=== PATIENT | female | born 1990 | race Caucasian/White ===

== ENCOUNTER 2016-08-03 18:57 | Emergency (ER) | payer MEDICAID, OTHER ==
--- NOTE | 2016-08-03 19:35 | UC ---
Respiratory Complaint HPI - HPI Summary HPI Summary: cough x 3 days + chest congestion , nasal congestion , no fever, no chills - History of Current Complaint Chief Complaint: UCRespiratory Stated Complaint: COUGH Time Seen by Provider: 08/03/16 19:25 Hx Obtained From: Patient Hx Last Menstrual Period: doesn't get - has mirena ?: No Onset/Duration: Gradual Onset, Lasting Days - 3, Still Present Timing: Constant Severity Initially: Moderate Severity Currently: Moderate Character: Cough: Productive Aggravating Factors: Exertion, Deep Breaths Alleviating Factors: Nothing Associated Signs And Symptoms: Positive: Wheezing, URI, Nasal Congestion. Negative: Dyspnea, Fever, Chills, Dizziness - Allergies/Home Medications Allergies/Adverse Reactions: Allergies Allergy/AdvReac Type Severity Reaction Status Date / Time Azithromycin [From Zithromax] Allergy Mild Rash and Verified 08/03/16 19:20 Vomiting PMH/Surg Hx/FS Hx/Imm Hx Endocrine History Of: Denies: Diabetes, Thyroid Disease, Hyperthyroidism, Hypothyroidism, Dyslipidemia Cardiovascular History Of: Denies: Cardiac Disorders, Hypertension, Pacemaker/ICD, Myocardial Infarction , Congestive Heart Failure, Atrial Fibrillation, Deep Vein Thrombosis, Bleeding Disorders Respiratory History Of: Denies: COPD, Asthma, Bronchitis, Pneumonia, Pulmonary Embolism GI/ History Of: Denies: Gastroesophageal Reflux, Ulcer, Gastrointestinal Bleed, Gall Bladder Disease, Kidney Stones, Diverticulitis, Renal Disease, Urosepsis Neurological History Of: Denies: TIA, CVA, Dementia, Seizures, Migraine Psychological History Of: Denies: Anxiety, Depression, Bipolar Disorder, Schizophrenia, Post Traumatic Stress Disorder Cancer History Of: Denies: Lung Cancer, Colorectal Cancer, Breast Cancer, Prostate Cancer, Cervical Cancer Other History Of: Negative For: HIV, Hepatitis B, Hepatitis C, Anticoagulant Therapy - Surgical History Surgical History: Yes Surgery Procedure, Year, and Place: left eye surgery - Family History Known Family History: Positive: Hypertension Negative: Cardiac Disease, Diabetes - Social History Alcohol Use: Rare Substance Use Type: None Smoking Status (MU): Heavy Every Day Tobacco Smoker Type: Cigarettes Amount Used/How Often: 1/2 ppd Length of Time of Smoking/Using Tobacco: APPROX 4-5 YRS Household Exposure Type: Cigarettes - Immunization History Most Recent Influenza Vaccination: none Most Recent Tetanus Shot: 02/09/14 Most Recent Pneumonia Vaccination: never Review of Systems Constitutional: Negative Skin: Negative Eyes: Negative ENT: Nasal Discharge Respiratory: Cough Cardiovascular: Negative Gastrointestinal: Negative All Other Systems Reviewed And Are Negative: Yes Physical Exam Triage Information Reviewed: Yes Appearance: Well-Appearing, No Pain Distress, Well-Nourished Vital Signs: Initial Vital Signs Temp 97.8 F 08/03/16 19:21 Pulse 84 08/03/16 19:21 Resp 16 08/03/16 19:21 BP 114/72 08/03/16 19:21 Pulse Ox 100 08/03/16 19:21 Vital Signs Reviewed: Yes Eye Exam: Normal Eyes: Positive: Conjunctiva Clear ENT: Positive: Normal ENT inspection, Hearing grossly normal, Pharynx normal, Nasal congestion, Nasal drainage. Negative: Pharyngeal erythema Neck exam: Normal Neck: Positive: Supple, Nontender, No Lymphadenopathy Respiratory: Positive: Chest non-tender, Lungs clear, Normal breath sounds Cardiovascular: Positive: RRR, No Murmur, Pulses Normal Skin Exam: Normal UC Diagnostic Evaluation - Laboratory O2 Sat by Pulse Oximetry: 100 Respiratory Course/Dx - Differential Dx/Diagnosis Provider Diagnoses: uri Discharge - Discharge Plan Condition: Stable Disposition: HOME Prescriptions: Albuterol HFA INHALER* [Ventolin HFA Inhaler*] 1 - 2 puff INH Q4H PRN #1 mdi PRN Reason: Wheezing Patient Education Materials: Upper Respiratory Infection (ED) Referrals: Sylvia Stanton MD [Primary Care Provider] - If Needed
[2016-08-03] MEDS ORDERED: Albuterol HFA INHALER* 8 gm MDI INH ONE (19:36)
[2016-08-03 19:39] VITALS: BP 114/72
== END 2016-08-03 19:44 | disposition home or self-care (01) ==
LOC: UCCORT 18:57
DX: J06.9 Acute upper respiratory infection, unspecified (principal); Z88.1 Allergy status to other antibiotic agents; F17.210 Nicotine dependence, cigarettes, uncomplicated
CPT/HCPCS: 99211; A9270-GY; G0463

== ENCOUNTER 2016-08-26 09:44 | Emergency (ER) | payer MEDICAID ==
[2016-08-26 12:35] VITALS: BP 114/70
--- NOTE | 2016-08-26 13:43 | UC ---
Complaint Female HPI - HPI Summary HPI Summary: Patient arrives with CC of urgency, burning, frequency and right flank pain x 3 days. She states she has had the Mirena for about 1 year and consistently gets UTI's. Denies hx of kidney stones. She denies blood in the urine - History Of Current Complaint Chief Complaint: UCGU Stated Complaint: URINARY COMPLAINT Time Seen by Provider: 08/26/16 13:00 Hx Obtained From: Patient Hx Last Menstrual Period: IUD ?: No Onset/Duration: Sudden Onset Timing: Constant Severity Initially: Moderate Severity Currently: Moderate Pain Intensity: 5 Pain Scale Used: 0-10 Numeric Character: Sharp, Burning Associated Signs And Symptoms: Positive: Back Pain - Risk Factors Ectopic Risk Factor: Negative Ovarian Torsion Risk Factor: Reproductive Age - Allergies/Home Medications Allergies/Adverse Reactions: Allergies Allergy/AdvReac Type Severity Reaction Status Date / Time Azithromycin [From Zithromax] Allergy Mild Rash and Verified 08/26/16 12:31 Vomiting PMH/Surg Hx/FS Hx/Imm Hx Previously Healthy: Yes Endocrine History Of: Denies: Diabetes, Thyroid Disease, Hyperthyroidism, Hypothyroidism, Dyslipidemia Cardiovascular History Of: Denies: Cardiac Disorders, Hypertension, Pacemaker/ICD, Myocardial Infarction , Congestive Heart Failure, Atrial Fibrillation, Deep Vein Thrombosis, Bleeding Disorders Respiratory History Of: Reports: Asthma Denies: COPD, Bronchitis, Pneumonia, Pulmonary Embolism GI/ History Of: Denies: Gastroesophageal Reflux, Ulcer, Gastrointestinal Bleed, Gall Bladder Disease, Kidney Stones, Diverticulitis, Renal Disease, Urosepsis Neurological History Of: Denies: TIA, CVA, Dementia, Seizures, Migraine Psychological History Of: Denies: Anxiety, Depression, Bipolar Disorder, Schizophrenia, Post Traumatic Stress Disorder Cancer History Of: Denies: Lung Cancer, Colorectal Cancer, Breast Cancer, Prostate Cancer, Cervical Cancer Other History Of: Negative For: HIV, Hepatitis B, Hepatitis C, Anticoagulant Therapy - Surgical History Surgical History: None Surgery Procedure, Year, and Place: left eye surgery - Family History Known Family History: Positive: Hypertension Negative: Cardiac Disease, Diabetes - Social History Occupation: Employed Full-time Lives: With Family Alcohol Use: Rare Substance Use Type: None Smoking Status (MU): Heavy Every Day Tobacco Smoker Type: Cigarettes Amount Used/How Often: 1/2 ppd Length of Time of Smoking/Using Tobacco: APPROX 4-5 YRS Household Exposure Type: Cigarettes - Immunization History Most Recent Influenza Vaccination: None Most Recent Tetanus Shot: 02/09/14 Most Recent Pneumonia Vaccination: never Review of Systems Constitutional: Negative Eyes: Negative Respiratory: Negative Cardiovascular: Negative Genitourinary: Dysuria, Frequency, Urgency Motor: Negative Neurovascular: Negative Neurological: Negative Psychological: Negative All Other Systems Reviewed And Are Negative: Yes Physical Exam Triage Information Reviewed: Yes Appearance: Well-Appearing, Well-Nourished Vital Signs: Initial Vital Signs Temp 97.6 F 08/26/16 12:32 Pulse 79 08/26/16 12:32 Resp 18 08/26/16 12:32 BP 114/70 08/26/16 12:32 Pulse Ox 99 08/26/16 12:32 Vital Signs Reviewed: Yes Eye Exam: Normal Eyes: Positive: Conjunctiva Clear Neck exam: Normal Neck: Positive: Supple Respiratory Exam: Normal Respiratory: Positive: Chest non-tender Abdominal Exam: Normal Abdomen Description: Positive: Nontender Musculoskeletal Exam: Normal Neurological Exam: Normal Neurological: Positive: Alert Psychological: Positive: Normal Response To Family, Age Appropriate Behavior Skin Exam: Normal Complaint Female Dx - Course Course Of Treatment: PATIENT WAS TREATED FOR UTI DESPITE UA NEGATIVE BASED ON SYMPTOMS OF URGENCY, FREQUENCY, BURNING AND DARK URINE. DENIES STD HISTORY OR POSSIBILITY. DENIES CHANCE OF . PATIENT IS ON MIRENA. - Differential Dx/Diagnosis Differential Diagnosis/HQI/PQRI: Cervicitis, Ureteral Stone, Urinary Tract Infection Provider Diagnoses: UTI Discharge - Discharge Plan Condition: Stable Disposition: HOME Prescriptions: Phenazopyridine TAB* [Pyridium 100 mg TAB*] 100 mg PO TID PRN #10 tab MDD 3 PRN Reason: Pain Sulfamethox/Trimethoprim DS* [Bactrim DS 800/160 TAB*] 1 tab PO BID #6 tab MDD 2 Patient Education Materials: Urinary Tract Infection in Women (ED) Referrals: Sylvia Stanton MD [Primary Care Provider] - Additional Instructions: Dx. Urinary Tract Infection Drink plenty of fluids. Supplement with cranberry or toscano juice. You may also take an over the counter cranberry supplement. If you have any questions about this, you may ask your pharmacist. If your symptoms have not improved in 1-2 days, please return to , the emergency room, or call your PCP. Please take any medications prescribed to you as directed. Pyridium: This medication is used to treat pain, burning, increased urination, and increased urge to urinate. These symptoms are usually caused by infection, injury, surgery, catheter, or other conditions that irritate the lower urinary tract. Pyridium will treat the symptoms of a urinary tract infection, but this medication does not treat the actual infection. Take the antibiotic that your doctor prescribes to treat your infection. Pyridium will most likely darken the color of your urine to an orange or red color. This is a normal effect and is not cause for alarm unless you have other symptoms such as pale or yellowed skin, fever, stomach pain, nausea, and vomiting. Darkened urine may also cause stains to your underwear, which may or may not be removed by laundering. It can also permanently stain soft contact lenses, and you should not wear them while taking this medicine.
== END 2016-08-26 13:33 | disposition home or self-care (01) ==
LOC: UCCORT 09:44
DX: N39.0 Urinary tract infection, site not specified (principal); Z87.440 Personal history of urinary (tract) infections; J45.909 Unspecified asthma, uncomplicated; Z88.1 Allergy status to other antibiotic agents; F17.210 Nicotine dependence, cigarettes, uncomplicated; Z32.02 Encounter for pregnancy test, result negative
CPT/HCPCS: 81003; 84702; 99212; G0463

== ENCOUNTER 2017-03-04 20:43 | Emergency (ER) | payer OTHER ==
[2017-03-04 20:58] VITALS: BP 116/70
--- NOTE | 2017-03-04 22:33 | UC ---
FLU HPI - HPI Summary HPI Summary: 27 y/o female with PMH - History of Current Complaint Hx Obtained From: Patient Hx Last Menstrual Period: unknown, mirena ?: No Onset/Duration: Sudden Onset, Lasting Days Severity Currently: Mild Severity Initially: Moderate <Jeni Rubalcava - Last Filed: 03/04/17 22:48> <Yazmin Stanton - Last Filed: 03/05/17 07:37> - History of Current Complaint Chief Complaint: UCRespiratory Stated Complaint: SINUS Time Seen by Provider: 03/04/17 22:32 - Allergy/Home Medications Allergies/Adverse Reactions: Allergies Allergy/AdvReac Type Severity Reaction Status Date / Time Azithromycin [From Zithromax] Allergy Mild Rash and Verified 03/04/17 20:58 Vomiting PMH/Surg Hx/FS Hx/Imm Hx Previously Healthy: Yes Other History Of: Negative For: HIV, Hepatitis B, Hepatitis C, Anticoagulant Therapy - Surgical History Surgical History: Yes Surgery Procedure, Year, and Place: left eye surgery - Family History Known Family History: Positive: Hypertension Negative: Cardiac Disease, Diabetes - Social History Alcohol Use: None Substance Use Type: None Smoking Status (MU): Heavy Every Day Tobacco Smoker Type: Cigarettes Amount Used/How Often: 1/2 ppd Length of Time of Smoking/Using Tobacco: APPROX 4-5 YRS Household Exposure Type: Cigarettes - Immunization History Most Recent Influenza Vaccination: None Most Recent Tetanus Shot: 02/09/14 Most Recent Pneumonia Vaccination: never <Jeni Rubalcava - Last Filed: 03/04/17 22:48> Review of Systems Constitutional: Fever - tactile, Chills, Fatigue ENT: Ear Ache - fullness, Sinus Congestion, Sinus Pain/Tenderness - frontal, max Respiratory: Cough Musculoskeletal: Negative Neurological: Negative Psychological: Negative Is Patient Immunocompromised?: No All Other Systems Reviewed And Are Negative: Yes <Jeni Rubalcava - Last Filed: 03/04/17 22:48> Physical Exam Triage Information Reviewed: Yes Appearance: Well-Appearing, No Pain Distress, Well-Nourished Vital Signs: Initial Vital Signs Temp 98 F 03/04/17 20:54 Pulse 76 03/04/17 20:54 Resp 16 03/04/17 20:54 BP 116/70 03/04/17 20:54 Pulse Ox 100 03/04/17 20:54 Vital Signs Reviewed: Yes Eyes: Positive: Conjunctiva Clear ENT: Positive: Pharyngeal erythema - minimal, no exudates + tenderness with light palpation/ percussino over frontal, max sinuses b/l, Other: - unable to fully visualize TM due to cerumen, no impaction Neck: Positive: Supple, Nontender, Enlarged Nodes @ - minimal submand. <1cm Respiratory: Positive: Chest non-tender, Lungs clear, Normal breath sounds, No respiratory distress, Respiratory distress. Negative: Rhonchi, Stridor, Wheezing, Expiration Neurological: Positive: Other: - normal gait Psychological Exam: Normal Skin Exam: Normal <Jeni Rubalcava - Last Filed: 03/04/17 22:48> Vital Signs: Initial Vital Signs Temp 98 F 03/04/17 20:54 Pulse 76 03/04/17 20:54 Resp 16 03/04/17 20:54 BP 116/70 03/04/17 20:54 Pulse Ox 100 03/04/17 20:54 <Yazmin Stanton - Last Filed: 03/05/17 07:37> Flu Course/Dx - Course Course Of Treatment: acute sinusitis, abx given, patient educated to go to ER with worsening symptoms, neck pain. - Differential Dx/Diagnosis Differential Diagnosis/HQI/PQRI: Bronchitis Provider Diagnoses: acute sinusitis <Jeni Rubalcava - Last Filed: 03/04/17 22:48> Discharge <Jeni Rubalcava - Last Filed: 03/04/17 22:48> <Yazmin Stanton - Last Filed: 03/05/17 07:37> - Discharge Plan Condition: Good Disposition: HOME Prescriptions: Amoxicillin/Clavulanate TAB* [Augmentin TAB 875*] 875 mg PO BID #13 tab Patient Education Materials: Sinusitis (ED) Referrals: Sylvia Stanton MD [Primary Care Provider] - Additional Instructions: - Augmentin twice daily x 7 days - Return with increased neck pain, stiffness, shortness of breath, fever >102 - Increase fluid intake - Increase rest - Follow up with primary within 2-3 days if no improvement - Motrin/ tylenol for fever, pain Attestation Statement User Type: Provider - I was available for consult. This patient was seen by the MARIA C. The patient was not presented to, seen by, or examined by me. -Ljj <Yazmin Stanton - Last Filed: 03/05/17 07:37>
[2017-03-04] MEDS ORDERED: Amoxicillin/Clavulanate TAB* 875 MG PO ONE (22:43)
--- NOTE | 2017-03-05 21:25 | ED ---
Progress - Progress Note Progress Note: flores calls and says augmentin is affecting her stomach. we will change to omnicef. Course/Dx - Course Course Of Treatment: acute sinusitis, abx given, patient educated to go to ER with worsening symptoms, neck pain. - Diagnoses Provider Diagnoses: Sinusitis
== END 2017-03-04 22:49 | disposition home or self-care (01) ==
LOC: UCCORT 20:43
DX: J01.90 Acute sinusitis, unspecified (principal); Z88.1 Allergy status to other antibiotic agents; F17.210 Nicotine dependence, cigarettes, uncomplicated
CPT/HCPCS: 99212; A9270-GY; G0463

== ENCOUNTER 2017-07-30 17:21 | Emergency (ER) | payer OTHER ==
[2017-07-30 18:41] VITALS: BP 116/74
--- NOTE | 2017-07-30 19:15 | UC ---
FLU HPI - HPI Summary HPI Summary: Pt c/o generalized malaise, chills, sore throat, fever X 3 days. - History of Current Complaint Chief Complaint: UCGeneralIllness Stated Complaint: CONGESTION, FEVER, BODY ACHES Time Seen by Provider: 07/30/17 18:56 Hx Obtained From: Patient Hx Last Menstrual Period: MIRANA ?: No Onset/Duration: Sudden Onset, Lasting Days, Still Present Severity Currently: Mild Severity Initially: Mild Pain Intensity: 0 Associated Signs & Symptoms: Positive: Fever, Myalgia, Sore Throat, Nasal Congestion, Headache Related Hx: Possible Flu/Infectious Exposure - Allergy/Home Medications Allergies/Adverse Reactions: Allergies Allergy/AdvReac Type Severity Reaction Status Date / Time azithromycin Allergy RASH, Verified 07/30/17 18:42 [From Zithromax Z-Shad] VOMITTING PMH/Surg Hx/FS Hx/Imm Hx Previously Healthy: Yes Other History Of: Negative For: HIV, Hepatitis B, Hepatitis C, Anticoagulant Therapy - Surgical History Surgical History: Yes Surgery Procedure, Year, and Place: left eye surgery - Family History Known Family History: Positive: Hypertension Negative: Cardiac Disease, Diabetes - Social History Occupation: Employed Full-time Lives: With Family Alcohol Use: None Substance Use Type: None Smoking Status (MU): Heavy Every Day Tobacco Smoker Type: Cigarettes Amount Used/How Often: 1/2 ppd Length of Time of Smoking/Using Tobacco: APPROX 4-5 YRS Have You Smoked in the Last Year: Yes Household Exposure Type: Cigarettes - Immunization History Most Recent Influenza Vaccination: None Most Recent Tetanus Shot: 02/09/14 Most Recent Pneumonia Vaccination: never Review of Systems Constitutional: Fever, Chills, Fatigue Skin: Negative Eyes: Negative ENT: Sore Throat Respiratory: Cough Cardiovascular: Negative Gastrointestinal: Negative Genitourinary: Negative Motor: Negative Neurovascular: Negative Musculoskeletal: Arthralgia, Myalgia Neurological: Headache Psychological: Negative Is Patient Immunocompromised?: No All Other Systems Reviewed And Are Negative: Yes Physical Exam Triage Information Reviewed: Yes Appearance: Ill-Appearing Vital Signs: Initial Vital Signs Temp 98.9 F 07/30/17 18:37 Pulse 90 07/30/17 18:37 Resp 18 07/30/17 18:37 BP 116/74 07/30/17 18:37 Pulse Ox 100 07/30/17 18:37 Vital Signs Reviewed: Yes Eye Exam: Normal ENT Exam: Other ENT: Positive: Nasal congestion Dental Exam: Normal Neck exam: Normal Respiratory Exam: Normal Cardiovascular Exam: Normal Musculoskeletal Exam: Normal Neurological Exam: Normal Psychological Exam: Normal Skin Exam: Normal Flu Course/Dx - Differential Dx/Diagnosis Differential Diagnosis/HQI/PQRI: Bronchitis, Influenza, Upper Respiratory Infection Provider Diagnoses: viral syndrome Discharge - Discharge Plan Condition: Stable Disposition: HOME Patient Education Materials: Viral Syndrome (ED) Forms: *Work Release Referrals: Sylvia Stanton MD [Primary Care Provider] - If Needed
== END 2017-07-30 19:21 | disposition home or self-care (01) ==
LOC: UCCORT 17:21
DX: B34.9 Viral infection, unspecified (principal); Z88.1 Allergy status to other antibiotic agents; F17.210 Nicotine dependence, cigarettes, uncomplicated
CPT/HCPCS: 87502; 99211; G0463

== ENCOUNTER 2018-12-06 19:30 | Emergency (ER) | payer OTHER ==
[2018-12-06 19:49] VITALS: BP 104/79
--- NOTE | 2018-12-06 20:12 | UC ---
Lower Extremity/Ankle HPI - HPI Summary HPI Summary: C/O redness swelling and pain with drainage left lateral great toe. No fevers. - History of Current Complaint Chief Complaint: UCSkin Stated Complaint: TOE COMPLAINT Time Seen by Provider: 12/06/18 19:53 Hx Obtained From: Patient Hx Last Menstrual Period: has mirena ?: No Onset/Duration: Gradual Onset, Lasting Weeks - 1, Worse Since - onset Severity Initially: Mild Severity Currently: Severe Pain Intensity: 9 Aggravating Factor(s): Standing, Ambulation Alleviating Factor(s): Rest, Elevation Able to Bear Weight: Yes - Allergies/Home Medications Allergies/Adverse Reactions: Allergies Allergy/AdvReac Type Severity Reaction Status Date / Time azithromycin Allergy RASH, Verified 12/06/18 19:50 [From Zithromax Z-Shad] VOMITTING Home Medications: Home Medications ALPRAZolam TAB* [Xanax TAB*] 0.25 mg PO TID PRN 12/06/18 [History Confirmed ] Venlafaxine TAB (NF) [Effexor TAB (NF)] 125 mg PO DAILY 12/06/18 [History Confirmed 12/06/18] PMH/Surg Hx/FS Hx/Imm Hx Previously Healthy: Yes Other History Of: Negative For: HIV, Hepatitis B, Hepatitis C, Anticoagulant Therapy - Surgical History Surgical History: Yes Surgery Procedure, Year, and Place: left eye surgery - Family History Known Family History: Positive: Hypertension Negative: Cardiac Disease, Diabetes - Social History Occupation: Works From/At Home Lives: With Family Alcohol Use: Rare Substance Use Type: None Smoking Status (MU): Light Every Day Tobacco Smoker Type: Cigarettes Amount Used/How Often: 1/2 ppd Length of Time of Smoking/Using Tobacco: APPROX 4-5 YRS Have You Smoked in the Last Year: Yes Household Exposure Type: Cigarettes - Immunization History Most Recent Influenza Vaccination: None Most Recent Tetanus Shot: 02/09/14 Most Recent Pneumonia Vaccination: never Review of Systems All Other Systems Reviewed And Are Negative: Yes Skin: Positive: Other - redness swelling left great toe Is Patient Immunocompromised?: No Physical Exam Triage Information Reviewed: Yes Appearance: Well-Appearing, Well-Nourished, Pain Distress - moderate with walking Vital Signs: Initial Vital Signs Temp 97.8 F 12/06/18 19:46 Pulse 91 12/06/18 19:46 Resp 16 12/06/18 19:46 BP 104/79 12/06/18 19:46 Pulse Ox 100 12/06/18 19:46 Vital Signs Reviewed: Yes Eyes: Positive: Conjunctiva Clear Neck exam: Normal Respiratory Exam: Normal Cardiovascular Exam: Normal Musculoskeletal Exam: Normal Neurological Exam: Normal Psychological Exam: Normal Skin: Positive: Other - redness, swelling and tenderness lateral left toe next to the nail. Images Feet (Multiple View): 1 - ingrown nail, swollen Lower Extremity Course/Dx - Differential Dx/Diagnosis Differential Diagnosis/HQI/PQRI: Cellulitis, Fracture (Closed), Infection, Subungual Hematoma Provider Diagnosis: Paronychia due to ingrown nail Discharge - Sign-Out/Discharge Documenting (check all that apply): Patient Departure All imaging exams completed and their final reports reviewed: No Studies - Discharge Plan Condition: Stable Disposition: HOME Prescriptions: Mupirocin 2% OINT* [Bactroban 2 % Oint*] 1 applic TOPICAL TID #22 gm Patient Education Materials: Ingrown Nail (ED), Paronychia (ED) Referrals: Mamie Marcial NP [Primary Care Provider] - Additional Instructions: Avoid tight shoes that squeeze the toes together. Do hot soaks with epsom salts 2-3 times a day. If the pain is not improving, follow up with a link wire fabric machine tender. - Billing Disposition and Condition Condition: STABLE Disposition: Home
== END 2018-12-06 20:22 | disposition home or self-care (01) ==
LOC: UCCORT 19:30
DX: L03.032 Cellulitis of left toe (principal); L60.0 Ingrowing nail; Z88.1 Allergy status to other antibiotic agents; F17.210 Nicotine dependence, cigarettes, uncomplicated
CPT/HCPCS: 99212; G0463